=== PATIENT | female | born 1965 | race African-American/Black ===

== ENCOUNTER 2018-05-25 12:12 | Emergency (ER) | payer OTHER ==
[~2018-05-25] VITALS: Ht 175.3 cm; Wt 116.1 kg
[2018-05-25 12:23] VITALS: Ht 175.3 cm; Wt 116.1 kg
[2018-05-25 14:07] VITALS: BP 124/71
== END 2018-05-25 14:07 | disposition home or self-care (01) ==
LOC: ED 12:12
DX: I83.91 Asymptomatic varicose veins of right lower extremity (principal); I10 Essential (primary) hypertension; Z91.040 Latex allergy status; Z88.0 Allergy status to penicillin
CPT/HCPCS: Q0092